=== PATIENT | female | born 1960 | race Two or more races ===

== ENCOUNTER 2017-10-29 09:30 | Outpatient (CLI) | payer OTHER | END 2017-10-29 15:08 | disposition home or self-care (01) | LOC: MAMO-SONO 09:30 | DX: Z12.31 Encounter for screening mammogram for malignant neoplasm of breast (principal); R10.2 Pelvic and perineal pain; N61.0 Mastitis without abscess; N60.19 Diffuse cystic mastopathy of unspecified breast ==

== ENCOUNTER 2018-03-10 15:40 | Outpatient (CLI) | payer OTHER | END 2018-03-10 16:36 | disposition home or self-care (01) | LOC: RAD 15:40 | DX: M25.571 Pain in right ankle and joints of right foot (principal); M25.572 Pain in left ankle and joints of left foot ==

== ENCOUNTER 2018-04-03 10:35 | Outpatient (CLI) | payer OTHER | END 2018-04-03 12:35 | disposition home or self-care (01) | LOC: NUCLEAR 10:35 | DX: Z82.62 Family history of osteoporosis (principal) ==

== ENCOUNTER 2018-10-28 10:13 | Outpatient (CLI) | payer OTHER | END 2018-10-28 10:51 | disposition home or self-care (01) | LOC: MAMO-SONO 10:13 | DX: N64.4 Mastodynia (principal); Z12.31 Encounter for screening mammogram for malignant neoplasm of breast; N94.89 Other specified conditions associated with female genital organs and menstrual cycle ==

== ENCOUNTER 2018-10-31 08:29 | Outpatient (CLI) | payer OTHER | END 2018-10-31 08:31 | disposition home or self-care (01) | LOC: RAD 08:29 | DX: Z01.811 Encounter for preprocedural respiratory examination (principal) ==

== ENCOUNTER 2024-11-16 12:46 | Outpatient (CLI) | payer OTHER | END 2024-11-16 13:17 | disposition home or self-care (01) | LOC: MAMO-SONO 12:46 | PROVIDERS: ATTEND Internal Medicine Cardiovascular Disease | DX: N64.2 Atrophy of breast (principal); Z12.31 Encounter for screening mammogram for malignant neoplasm of breast; M25.561 Pain in right knee | CPT/HCPCS: 73721 ==

== ENCOUNTER 2024-11-26 10:44 | Outpatient (CLI) | payer OTHER | END 2024-11-26 10:51 | disposition home or self-care (01) | LOC: RAD 10:44 | DX: M25.561 Pain in right knee (principal); M99.01 Segmental and somatic dysfunction of cervical region; M99.02 Segmental and somatic dysfunction of thoracic region; M99.03 Segmental and somatic dysfunction of lumbar region; M99.04 Segmental and somatic dysfunction of sacral region; M99.05 Segmental and somatic dysfunction of pelvic region ==